=== PATIENT | female | born 1935 | race Caucasian/White ===

== ENCOUNTER 2018-12-13 08:56 | Outpatient (REF) | payer MEDICARE, OTHER ==
[~2018-12-13] VITALS: Ht 157.5 cm; Wt 52.2 kg
[~2018-12-13 08:56] MED LIST: ASPIRIN EC LOW81 MG PO; MACROBID100 MG PO; NEXIUM40 M1 PO; NO MEDS
== END 2018-12-13 09:16 | disposition home or self-care (01) ==
LOC: INF 08:56
PROVIDERS: ATTEND Internal Medicine
DX: M81.0 Age-related osteoporosis without current pathological fracture (principal)
CPT/HCPCS: J0897